=== PATIENT | female | born 1970 | race Caucasian/White ===

== ENCOUNTER 2020-07-13 15:30 | Emergency (ER) | payer BC, OTHER ==
--- NOTE | 2020-07-13 17:10 | EDM.PDOC ---
ED HPI GENERAL MEDICAL PROBLEM - General Chief Complaint: Chest Pain Stated Complaint: CHEST TIGHTNESS Time Seen by Provider: 07/13/20 15:53 Source of Information: Reports: Patient, RN Notes Reviewed - History of Present Illness INITIAL COMMENTS - FREE TEXT/NARRATIVE: 49 yr old female with onset of central and L central chest discomfort about 3 hrs ago. She did take aspirin. Still has mild to moderate chest ache and heaviness at time of eval. Pain does not radiate. No abd pain, nausea or vomiting. No recent cough, fever or chills. She does not smoke. Denies hx Htn, diabetes or other known health problems. Anterior Chest Pain Score (Numeric/FACES): 2 - Related Data Allergies Allergy/AdvReac Type Severity Reaction Status Date / Time Penicillins Allergy Severe Hives Verified 07/13/20 15:42 Home Meds: Home Meds . [No Known Home Meds] 07/13/20 [History] Past Medical History HEENT History: Reports: Other (See Below) Other HEENT History: septoplasty Musculoskeletal History: Reports: Other (See Below) Other Musculoskeletal History: radial heads shattered bilat and had surgery Psychiatric History: Reports: Anxiety Social & Family History - Tobacco Use Tobacco Use Status *Q: Never Tobacco User - Caffeine Use Caffeine Use: Reports: Coffee, Soda, Tea - Recreational Drug Use Recreational Drug Use: No ED ROS GENERAL - Review of Systems Review Of Systems: See Below Constitutional: Denies: Fever, Chills, Diaphoresis HEENT: Reports: No Symptoms Respiratory: Denies: Shortness of Breath, Pleuritic Chest Pain, Cough Cardiovascular: Reports: Chest Pain. Denies: Palpitations GI/Abdominal: Denies: Abdominal Pain, Nausea, Vomiting Musculoskeletal: Denies: Shoulder Pain, Arm Pain, Back Pain Skin: Reports: No Symptoms Neurological: Reports: No Symptoms ED EXAM, GENERAL - Physical Exam Exam: See Below General Appearance: Alert, Anxious Head: Atraumatic Neck: Supple Respiratory/Chest: No Respiratory Distress, Lungs Clear, Normal Breath Sounds, Chest Non-Tender Cardiovascular: Regular Rate, Rhythm GI/Abdominal: Soft, Non-Tender Extremities: Normal Inspection. No: Leg Pain, Increased Warmth, Redness Neurological: Alert, Oriented, No Motor/Sensory Deficits Skin Exam: Warm, Dry, Normal Color, No Rash #1 Interpretation EKG Date: 07/13/20 Rhythm: NSR Molina: Normal P-Wave: Present QRS: Other (q waves lead III) ST-T: Other (T wave inversion lead III.) Course - Vital Signs Last Recorded V/S: Last Vital Signs Temp 97.7 F 07/13/20 15:45 Pulse 106 H 07/13/20 15:45 Resp 20 07/13/20 15:45 BP 153/107 H 07/13/20 15:45 Pulse Ox 96 07/13/20 15:45 - Orders/Labs/Meds Labs: Laboratory Tests 07/13/20 Range/Units 16:40 Troponin I < 0.017 (0.00-0.056) ng/mL - Re-Assessments/Exams Free Text/Narrative Re-Assessment/Exam: 07/13/20 18:36 EKG did not show acute changes, trop nl. Sinus rythm while here in the ED, no ectopy. Discharge instr. as documented. Departure - Departure Time of Disposition: 17:35 Disposition: Home, Self-Care 01 Condition: Fair Clinical Impression: Atypical chest pain Instructions: Nonspecific Chest Pain, Adult Referrals: Esmer Ni MD [Primary Care Provider] - Forms: ED Department Discharge Additional Instructions: Rest. You may alternate tylenol and ibuprofen as needed for discomfort. Have your blood pressure checked a few times in the next 1 to 2 weeks to make sure that does normalize. Follow up with your regular medical provider as needed. Return to ED if symptoms worsening in any way. Sepsis Event Note (ED) - Evaluation Sepsis Screening Result: No Definite Risk - Focused Exam Vital Signs: Vital Signs Temp Pulse Resp BP Pulse Ox 07/13/20 15:45 97.7 F 106 H 20 153/107 H 96
== END 2020-07-13 17:51 | disposition home or self-care (01) ==
LOC: JD.ED 15:30
DX: R07.89 Other chest pain (principal); Z88.0 Allergy status to penicillin
CPT/HCPCS: 36415; 84484; 93005; 93010; 99283; 99285-25

== ENCOUNTER 2022-09-10 15:03 | Emergency (ER) | payer BC ==
[2022-09-10] MEDS ORDERED: Ibuprofen 600 MG Tab PO ONE (15:39)
[2022-09-10 16:32] LABS: CORONAVIRUS COVID-19 NAA NEGATIVE (NEGATIVE)
== END 2022-09-10 18:00 | disposition home or self-care (01) ==
LOC: JD.ED 15:03
DX: M54.50 Low back pain, unspecified (principal); R59.0 Localized enlarged lymph nodes; Z88.0 Allergy status to penicillin; Z91.040 Latex allergy status; Z91.048 Other nonmedicinal substance allergy status; Z20.822 Contact with and (suspected) exposure to COVID-19
CPT/HCPCS: 0241U; 36415; 74176; 80053; 81001; 85025; 86140; 99284